=== PATIENT | male | born 1945 ===

== ENCOUNTER 2018-02-05 06:17 | Inpatient (IN) | payer MEDICARE ==
[2018-02-05] MEDS ORDERED: Sodium Chloride 0.9% 1,000 ML IV STA (07:17)
[2018-02-05] MEDS ORDERED: Iohexol 240 (50 ml) PO ONE (07:17)
--- NOTE | 2018-02-05 07:21 | ED PDOC ---
HPI: Male Pain Time Seen by Provider: 02/05/18 07:11 Chief Complaint (Nursing): Groin Pain Chief Complaint (Provider): Groin Pain History Per: Patient History/Exam Limitations: no limitations Onset/Duration Of Symptoms: Days (x1) Current Symptoms Are (Timing): Still Present Additional Complaint(s): 72 y/o male with a PMHx of DM presents to the ED with right inguinal pain and swelling, onset one day ago. Patient states pain is associated with nausea. Patient is able to pass gas. Denies vomiting, diarrhea and dysuria. PMD: [facility] Past Medical History Reviewed: Historical Data, Nursing Documentation, Vital Signs Vital Signs: Last Vital Signs Temp 97.2 F L 02/05/18 06:28 Pulse 82 02/05/18 06:28 Resp 18 02/05/18 06:28 BP 124/74 02/05/18 06:28 Pulse Ox 99 02/05/18 06:28 - Medical History PMH: Diabetes - Surgical History Surgical History: CABG - Family History Family History: States: Unknown Family Hx - Allergies Allergies/Adverse Reactions: Allergies Allergy/AdvReac Type Severity Reaction Status Date / Time No Known Allergies Allergy Verified 02/05/18 06:27 Review of Systems ROS Statement: Except As Marked, All Systems Reviewed And Found Negative Gastrointestinal: Positive for: Nausea. Negative for: Vomiting, Diarrhea Genitourinary Male: Positive for: Other (Right inguinal pain and swelling). Negative for: Dysuria Physical Exam - Reviewed Nursing Documentation Reviewed: Yes Vital Signs Reviewed: Yes - Physical Exam Skin: Positive for: Warm, Dry Eye Exam: Positive for: Normal appearance Neck: Positive for: Normal Respiratory: Positive for: Normal Breath Sounds. Negative for: Respiratory Distress Gastrointestinal/Abdominal: Positive for: Bowel Sounds, Tenderness (mild), Mass (right inguinal palpable pass. Not reducible). Negative for: Distended Male Genital Exam: Negative for: other (Testicular mass) Extremity: Positive for: Normal ROM. Negative for: Tenderness, Swelling Neurologic/Psych: Positive for: Alert, Oriented (x3). Negative for: Motor/ Sensory Deficits - Laboratory Results Result Diagrams: 02/05/18 07:30 02/05/18 07:30 - ECG O2 Sat by Pulse Oximetry: 99 (RA) Pulse Ox Interpretation: Normal Medical Decision Making Medical Decision Making: Time: 721 Plan: -- CT Abd/Pelvis PO & IV Contrast -- CMP -- ED Urine Dipstick -- CBC with differentials -- Sodium Chloride IV 100 mls/hr -- Iohexol 50 ml PO -- Toradol 30 mg IVP -- Zofran Inj 4 mg IVP Time: 1225 CT ABD/PELVIS RESULTS FINDINGS: LOWER THORAX: Evaluation of the lung bases reveals no evidence of infiltrate or effusion. Mild diffuse chronic interstitial changes are identified. No pericardial effusion is seen. Small hiatal hernia is noted. Visualized stomach is adequately distended, and there may be some mild nonspecific thickening in the gastric body and antrum. Mild gastritis is not excluded. Duodenum may also have some mild fold thickening, and mild duodenitis is not excluded. LIVER: Shows no evidence of focal mass or intrahepatic ductal dilatation. Tiny hepatic cyst is seen anteriorly in the subcapsular region of the left lobe of the liver on series 2, image 23. GALLBLADDER AND BILE DUCTS: Unremarkable. PANCREAS: Unremarkable. No gross lesion or ductal dilatation. SPLEEN: Unremarkable. ADRENALS: Unremarkable. No mass. KIDNEYS AND URETERS: Unremarkable. No hydronephrosis. No solid mass. VASCULATURE: Unremarkable. No aortic aneurysm. BOWEL: There is evidence of a very large right inguinal hernia with bowel loop within the hernia defect and extending towards the upper right hemiscrotum. Bowel loop appears to represent right colon and/or cecum. A portion of the small bowel, presumably the terminal ileum also appears to extend into the right hernia defect with some mild dilatation of the small bowel proximal to this area. Base of the appendix is also noted to lie within upper portion of the hernia. Chronic diverticular changes are seen in the left colon and sigmoid colon without pericolonic inflammatory change to suggest acute diverticulitis. No appreciable free intraperitoneal air is noted. APPENDIX: Appendix is normal in size but once again extends into the superior portion of the right inguinal hernia. PERITONEUM: Unremarkable. No free fluid. No free air. LYMPH NODES: Unremarkable. No enlarged lymph nodes. BLADDER: Bladder is distended without wall thickening. Prostate gland is enlarged. REPRODUCTIVE: Unremarkable. BONES: Degenerative changes are seen in the spine without fracture. OTHER FINDINGS: Fluid is also appreciated within the right inguinal hernia defect in superior hemiscrotal region. IMPRESSION: Large right inguinal hernia which contains cecum, probable terminal ileum, and also base of the appendix. There is some mild associated small bowel dilatation suggesting an element of partial bowel obstruction and contrast is noted extending to the level of the terminal ileum but not within the colon. No free intraperitoneal air or pneumatosis within the bowel. Scribe Attestation: Documented by Johnny Barr acting as a scribe for Sage Green MD. Provider Scribe Attestation: All medical record entries made by the Scribe were at my direction and personally dictated by me. I have reviewed the chart and agree that the record accurately reflects my personal performance of the history, physical exam, medical decision making, and the department course for this patient. I have also personally directed, reviewed, and agree with the discharge instructions and disposition. Disposition - Clinical Impression Clinical Impression: Inguinal hernia, incarcerated - Patient ED Disposition Is Patient to be Admitted: Yes - Disposition Disposition Time: 12:51 Condition: FAIR Forms: [facility] (Hebrew) - Pt Status Changed To: Hospital Disposition Of: Inpatient - Admit Certification Admit to Inpatient:: After my assessment, the patient will require hospitalization for at least two midnights. This is because of the severity of symptoms shown, intensity of services needed, and/or the medical risk in this patient being treated as an outpatient. - POA Present On Arrival: None
[2018-02-05] MEDS ORDERED: Iohexol 240 (50 ml) ONE (07:34)
[2018-02-05 10:14] LABS: BASO # 0.1 K/uL (0.0-0.2); BASO % 0.4 % (0.0-2.0); EOS # 0.1 K/uL (0.0-0.7); EOS % 0.8 % (0.0-4.0); HEMOGLOBIN 13.3 g/dL (12.0-18.0); LYMPH # 1.4 K/uL (1.0-4.3); LYMPH % 10.7 % (20.0-40.0); MEAN CELL VOLUME 83.2 fl (80.0-94.0); MEAN CORPUSCULAR HEMOGLOBIN 27.5 pg (27.0-31.0); MEAN PLATELET VOLUME 8.9 fl (7.2-11.7); MONO % 8.2 % (0.0-10.0); NEUT # 10.1 K/uL (1.8-7.0); NEUT % 79.9 % (50.0-75.0); RBC 4.84 Mil/uL (4.40-5.90); RED CELL DISTRIBUTION WIDTH 14.3 % (11.5-14.5); WHITE BLOOD COUNT 12.7 K/uL (4.8-10.8)
[2018-02-05 10:18] LABS: ALB/GLOB RATIO 1.3 (1.0-2.1); ALT/SGPT 25 U/L (21-72); AST/SGOT 21 U/L (17-59); BLOOD UREA NITROGEN 17 mg/dl (9-20); CALCIUM 9.5 mg/dL (8.4-10.2); GFR NON-AFRICAN AMERICAN > 60
[2018-02-05] MEDS ORDERED: Iohexol 300 100 ML IJ ONE (11:48)
[2018-02-05] MEDS ORDERED: Sodium Chloride 0.9% 50 ML IV ONE (11:48)
--- NOTE | 2018-02-05 12:28 | CT ---
Date of service: 02/05/2018 PROCEDURE: CT Abdomen and Pelvis with contrast HISTORY: abd pain COMPARISON: None. TECHNIQUE: Contrast dose: 95 milliliters Radiation dose: Total exam DLP = 410 mGy-cm. This CT exam was performed using one or more of the following dose reduction techniques: Automated exposure control, adjustment of the mA and/or kV according to patient size, and/or use of iterative reconstruction technique. FINDINGS: LOWER THORAX: Evaluation of the lung bases reveals no evidence of infiltrate or effusion. Mild diffuse chronic interstitial changes are identified. No pericardial effusion is seen. Small hiatal hernia is noted. Visualized stomach is adequately distended, and there may be some mild nonspecific thickening in the gastric body and antrum. Mild gastritis is not excluded. Duodenum may also have some mild fold thickening, and mild duodenitis is not excluded. LIVER: Shows no evidence of focal mass or intrahepatic ductal dilatation. Tiny hepatic cyst is seen anteriorly in the subcapsular region of the left lobe of the liver on series 2, image 23. GALLBLADDER AND BILE DUCTS: Unremarkable. PANCREAS: Unremarkable. No gross lesion or ductal dilatation. SPLEEN: Unremarkable. ADRENALS: Unremarkable. No mass. KIDNEYS AND URETERS: Unremarkable. No hydronephrosis. No solid mass. VASCULATURE: Unremarkable. No aortic aneurysm. BOWEL: There is evidence of a very large right inguinal hernia with bowel loop within the hernia defect and extending towards the upper right hemiscrotum. Bowel loop appears to represent right colon and/or cecum. A portion of the small bowel, presumably the terminal ileum also appears to extend into the right hernia defect with some mild dilatation of the small bowel proximal to this area. Base of the appendix is also noted to lie within upper portion of the hernia. Chronic diverticular changes are seen in the left colon and sigmoid colon without pericolonic inflammatory change to suggest acute diverticulitis. No appreciable free intraperitoneal air is noted. APPENDIX: Appendix is normal in size but once again extends into the superior portion of the right inguinal hernia. PERITONEUM: Unremarkable. No free fluid. No free air. LYMPH NODES: Unremarkable. No enlarged lymph nodes. BLADDER: Bladder is distended without wall thickening. Prostate gland is enlarged. REPRODUCTIVE: Unremarkable. BONES: Degenerative changes are seen in the spine without fracture. OTHER FINDINGS: Fluid is also appreciated within the right inguinal hernia defect in superior hemiscrotal region. IMPRESSION: Large right inguinal hernia which contains cecum, probable terminal ileum, and also base of the appendix. There is some mild associated small bowel dilatation suggesting an element of partial bowel obstruction and contrast is noted extending to the level of the terminal ileum but not within the colon. No free intraperitoneal air or pneumatosis within the bowel.
[2018-02-05 13:11] VITALS: BP 132/67; PULSE 66; RESP 20; TEMP 97.9; O2SAT 98
--- NOTE | 2018-02-05 13:20 | CP.PCM.CON ---
<Jessica Jones - Last Filed: 02/05/18 13:13> History of Present Illness - History of Present Illness History of Present Illness: Surgery: Dr. Lees Pt is a 72M with PMHx significant for DM & open heart surgery who presented to [facility] for complaints of abdominal pain that started yesterday. Pt reports feeling a bulge in his Right groin with sharp pain. Pt admits to having similar episode in the past but states it resolved on it's own. Pt denies any associated nausea/vomiting, fevers or chills. He states his last BM was yesterday and it was normal. He denies any blood in his stool. In the ER , pt had a CT abdomen/pelvis with PO/IV contrast which showed R inguinal hernia containing colon. Surgery called to evaluate. Upon exam, pt resting comfortably in bed. He denies any abdominal pain and states pain is only present in the R groin with palpation. Denies any other complaints. Denies chest pain or SOB. PMHx: as stated above PSHx: open heart surgery 2008 SocialHx: denies smoking/EtOH/drugs NKDA Review of Systems - Review of Systems All systems: reviewed and no additional remarkable complaints except (as per HPI ) Past Patient History - Past Medical History & Family History Past Medical History?: Yes - Past Social History Smoking Status: Never Smoked - PULMONARY Hx Respiratory Disorders: No - NEUROLOGICAL Hx Neurological Disorder: No - HEENT Hx HEENT Problems: No - RENAL Hx Chronic Kidney Disease: No Hx Kidney Stones: No - ENDOCRINE/METABOLIC Hx Endocrine Disorders: Yes Hx Diabetes Mellitus Type 2: Yes - HEMATOLOGICAL/ONCOLOGICAL Hx Blood Disorders: No - INTEGUMENTARY Hx Dermatological Problems: No - MUSCULOSKELETAL/RHEUMATOLOGICAL Hx Musculoskeletal Disorders: No - GASTROINTESTINAL Hx Gastrointestinal Disorders: No - GENITOURINARY/GYNECOLOGICAL Hx Genitourinary Disorders: No - PSYCHIATRIC Hx Physical Abuse: No - SURGICAL HISTORY Hx Coronary Artery Bypass Graft: Yes - ANESTHESIA Hx Anesthesia: Yes Meds Home Medications: Home Medication List Medication Instructions Recorded Confirmed Type traMADol [Ultram] 50 mg PO Q8 #10 tab 02/05/18 Rx Allergies/Adverse Reactions: Allergies Allergy/AdvReac Type Severity Reaction Status Date / Time No Known Allergies Allergy Verified 02/05/18 06:27 - Medications Medications: Current Medications Sodium Chloride (Sodium Chloride 0.9%) 1,000 mls @ 100 mls/hr IV .Q10H STA Stop: 02/05/18 17:16 Last Admin: 02/05/18 07:43 Dose: 100 mls/hr Physical Exam - Constitutional Appears: Well, No Acute Distress - Head Exam Head Exam: ATRAUMATIC, NORMOCEPHALIC - Eye Exam Eye Exam: Normal appearance - ENT Exam ENT Exam: Mucous Membranes Moist - Respiratory Exam Respiratory Exam: NORMAL BREATHING PATTERN - Cardiovascular Exam Cardiovascular Exam: RRR - GI/Abdominal Exam GI & Abdominal Exam: Soft. absent: Distended, Guarding, Rebound, Tenderness - Exam Additional comments: large R inguinal hernia; soft, mild tenderness to palpation - Neurological Exam Neurological exam: Alert, Oriented x3 - Skin Skin Exam: Dry, Warm Results - Vital Signs Recent Vital Signs: Last Vital Signs Temp 97.9 F 02/05/18 13:10 Pulse 66 02/05/18 13:10 Resp 20 02/05/18 13:10 BP 132/67 02/05/18 13:10 Pulse Ox 98 02/05/18 13:10 - Labs Result Diagrams: 02/05/18 07:30 02/05/18 07:30 Labs: Laboratory Results - last 24 hr 02/05/18 02/05/18 02/05/18 07:30 07:30 10:28 WBC 12.7 H RBC 4.84 Hgb 13.3 Hct 40.2 MCV 83.2 MCH 27.5 MCHC 33.0 RDW 14.3 Plt Count 169 MPV 8.9 Neut % (Auto) 79.9 H Lymph % (Auto) 10.7 L [place] % (Auto) 8.2 Eos % (Auto) 0.8 Baso % (Auto) 0.4 Neut # (Auto) 10.1 H Lymph # (Auto) 1.4 [place] # (Auto) 1.0 H Eos # (Auto) 0.1 Baso # (Auto) 0.1 Sodium 136 Potassium 3.9 Chloride 100 Carbon Dioxide 26 Anion Gap 14 BUN 17 Creatinine 0.4 L Est GFR ( Amer) > 60 Est GFR (Non-Af Amer) > 60 POC Glucose (mg/dL) 196 H Random Glucose 188 H Calcium 9.5 Total Bilirubin 0.6 AST 21 ALT 25 Alkaline Phosphatase 72 Total Protein 7.2 Albumin 4.0 Globulin 3.2 Albumin/Globulin Ratio 1.3 - Imaging and Cardiology CT scan - abdomen Status: Image reviewed by me, Report reviewed by me Assessment & Plan - Assessment and Plan (Free Text) Assessment: 72M with R inguinal hernia Plan: - pt seen and examined with Dr. Lees, hernia was reduced with gentle traction after pt was placed in trendelenberg - pt tolerated the procedure well, without any pain/complaints - ok to DC with outpt f/u for elective hernia repair - pt instructed to return to the ER if symptoms return - d/w Dr. Yoana Jones <Ruy Lees - Last Filed: 02/05/18 14:14> History of Present Illness - History of Present Illness History of Present Illness: Patient was seen and examined at the bedside. Agree with resident's note above. Meds - Medications Medications: Current Medications Sodium Chloride (Sodium Chloride 0.9%) 1,000 mls @ 100 mls/hr IV .Q10H STA Stop: 02/05/18 17:16 Last Admin: 02/05/18 07:43 Dose: 100 mls/hr Results - Vital Signs Recent Vital Signs: Last Vital Signs Temp 97.9 F 02/05/18 13:10 Pulse 66 02/05/18 13:10 Resp 20 02/05/18 13:10 BP 132/67 02/05/18 13:10 Pulse Ox 98 02/05/18 13:10 - Labs Result Diagrams: 02/05/18 07:30 02/05/18 07:30 Labs: Laboratory Results - last 24 hr 02/05/18 02/05/18 02/05/18 07:30 07:30 10:28 WBC 12.7 H RBC 4.84 Hgb 13.3 Hct 40.2 MCV 83.2 MCH 27.5 MCHC 33.0 RDW 14.3 Plt Count 169 MPV 8.9 Neut % (Auto) 79.9 H Lymph % (Auto) 10.7 L [place] % (Auto) 8.2 Eos % (Auto) 0.8 Baso % (Auto) 0.4 Neut # (Auto) 10.1 H Lymph # (Auto) 1.4 [place] # (Auto) 1.0 H Eos # (Auto) 0.1 Baso # (Auto) 0.1 Sodium 136 Potassium 3.9 Chloride 100 Carbon Dioxide 26 Anion Gap 14 BUN 17 Creatinine 0.4 L Est GFR ( Amer) > 60 Est GFR (Non-Af Amer) > 60 POC Glucose (mg/dL) 196 H Random Glucose 188 H Calcium 9.5 Total Bilirubin 0.6 AST 21 ALT 25 Alkaline Phosphatase 72 Total Protein 7.2 Albumin 4.0 Globulin 3.2 Albumin/Globulin Ratio 1.3
== END 2018-02-05 13:30 | disposition home or self-care (01) | DRG 395 ==
LOC: H.ER 06:17 → H.ERHOLD 12:49
PROVIDERS: ADMIT Internal Medicine; ATTEND Internal Medicine
DX: K40.30 Unilateral inguinal hernia, with obstruction, without gangrene, not specified as recurrent (principal); Z95.1 Presence of aortocoronary bypass graft; E11.9 Type 2 diabetes mellitus without complications

== ENCOUNTER 2018-02-09 06:20 | Day surgery (SDC) | payer MEDICARE ==
[2018-02-08 15:08] VITALS: BMI 21.7
[2018-02-09] MEDS ORDERED: Lactated Ringer's 1,000 ML IV ONE (07:10)
[2018-02-09] MEDS ORDERED: Bupivacaine HCl 0.5% PF (30 ml) Inj ONE (07:42)
[2018-02-09] MEDS ORDERED: ceFAZolin IV 1 gm in Dextrose 1 GM/50 ML BAG IVPB ONE (07:46)
--- NOTE | 2018-02-09 08:04 | CP.SDSHP ---
Same Day Surgery H & P - History Proposed Procedure: Right inguinal hernia repair with mesh Pre-Op Diagnosis: right inguinal hernia - Previous Medical/Surgical History Cardiac: ASHD/CAD Previous Surgical History: CABG - Allergies Allergies: Allergies No Known Allergies Allergy (Verified 02/09/18 07:26) - Physical Exam Vital Signs: Vital Signs 02/09/18 07:00 Temperature 98.2 F Pulse Rate 84 Respiratory 18 Rate Blood Pressure 113/73 O2 Sat by Pulse 99 Oximetry Mental Status: Alert & Oriented x3 Neuro: WNL Heart: WNL Lungs: WNL GI: WNL - {Optional Preform as Required} Breast: WNL Abdomen: Other (reducible right inguinal hernia) Integument: WNL : WNL Ortho: WNL ENT: WNL - Impression Impression: right inguinal hernia Pt. Evaluated Today:Candidate for Anesthesia & Procedure: Yes - Date & Time Date: 02/09/18 Time: 08:00 Short Stay Discharge - Short Stay Discharge Admitting Diagnosis/Reason for Visit: K40.90 Disposition: HOME/ ROUTINE Referrals: Jones Whitt MD [Primary Care Provider] - Follow-up: in the office in 2 weeks Additional Instructions (Diet, Activity): no heavy lifting for 4 weeks, keep incision clean and dry Progress Note/Discharge Note with Instructions: Patient underwent elective right inguinal hernia repair
--- NOTE | 2018-02-09 08:08 | RAD ---
Date of service: 02/09/2018 HISTORY: pre op COMPARISON: No prior. TECHNIQUE: Chest PA and lateral FINDINGS: LUNGS: There is vague opacity overlying the anterior right 1st rib, right paratracheal location/confluence of the medial right clavicle. This may represent asymmetrical right pleural parenchymal thickening or reaction. However, chronicity is unknown. PLEURA: No significant pleural effusion identified. No pneumothorax apparent. CARDIOVASCULAR: Midline sternotomy. And coronary artery bypass surgery clips. Normal heart size. No pulmonary venous congestion appreciated OSSEOUS STRUCTURES: No significant abnormalities. VISUALIZED UPPER ABDOMEN: Normal. OTHER FINDINGS: None. IMPRESSION: Right upper lobe vague opacity of unclear significance (if any) asymmetrical right pleural parenchymal reaction thickening is 1 consideration. Recommend comparison with outside chest x-rays to assess stability. If none exist and noncontrast CT chest should suffice for clarification. No dense consolidation noted
[2018-02-09] MEDS ORDERED: Bupivacaine 0.5% Inj(30mL) IJ ONE ×2 (08:35→09:46)
--- NOTE | 2018-02-09 10:12 | PCM.SURG1 ---
Surgeon's Initial Post Op Note - Surgeon's Notes Surgeon: sidra E Merchant: none Type of Anesthesia: General Endo Anesthesia Administered By: Osmel Pre-Operative Diagnosis: right inguinal hernia Operative Findings: pantaloon hernia Post-Operative Diagnosis: pantaloon hernia Operation Performed: repair of right inguinal hernia with mesh Specimen/Specimens Removed: hernia sac and lipoma of the cord Estimated Blood Loss: EBL {In ML}: 10 Blood Products Given: N/A Drains Used: No Drains Post-Op Condition: Good Date of Surgery/Procedure: 02/09/18 Time of Surgery/Procedure: 08:00
[2018-02-09] MEDS ORDERED: Lactated Ringer's 1,000 ML IV SCH (10:15)
--- NOTE | 2018-02-09 10:16 | CARD ---
APPROVED REPORT Date of service: 02/09/2018 EKG Measurement Heart [id number] <Conclusion> Normal sinus rhythm Right bundle branch block Abnormal ECG
[2018-02-09] MEDS ORDERED: Oxycodone/Acetaminophen 5/325 mg Tab PO PRN ×2 (10:19→10:21)
[2018-02-09 12:31] VITALS: RESP 18
[2018-02-09 12:55] VITALS: O2SAT 98
[2018-02-09 15:15] VITALS: BP 110/67; PULSE 84; TEMP 98.4
--- NOTE | 2018-02-10 08:28 | OP ---
PROCEDURE DATE: 02/09/18 PREOPERATIVE DIAGNOSIS: Right inguinal hernia. POSTOPERATIVE DIAGNOSIS: Direct and indirect (pantaloon) right inguinal hernia. PROCEDURE: Repair of the right inguinal hernia with mesh. SURGEON: Ruy Lees MD PAN RECLAIM PROCESSOR: None. TYPE OF ANESTHESIA: General with endotracheal intubation. ANESTHESIA ADMINISTERED BY: Dr. Bolivar. INTRAOPERATIVE FINDINGS: Pantaloon hernia. IV FLUIDS: Crystalloids. ESTIMATED BLOOD LOSS: 10 mL. SPECIMEN: Hernia sac and lipoma of the cord. BRIEF HISTORY: Mr. Norman is a very pleasant 72-year-old male, who initially presented to [facility] Emergency Room for a right inguinal hernia that was incarcerated; however, the hernia was reduced in the emergency room and the patient was brought back for elective right inguinal hernia repair. All the risks and benefits of the procedure were explained to the patient. With the patient having a full understanding of all the risks and benefits involved, informed consent was obtained and the patient was taken to the operating room for the above stated procedure. DESCRIPTION OF PROCEDURE: The patient was brought in to the operating room and placed supine on the operating table. Bilateral Flowtron boots were applied to the patient's lower extremities. After successful induction of anesthesia and successful endotracheal intubation by the anesthesia team, the patient's right groin was shaved and prepped with Betadine and draped in a standard surgical fashion. Prior to the beginning of the procedure, the patient received prophylactic Ancef antibiotic. Time-out was called in the room and everyone in the room were in agreement. Using a 15-blade scalpel knife, approximately 5-cm incision was made in an oblique fashion in the right groin and subsequent to that, dissection was carried down with electrocautery for the subcutaneous tissues until the Sergo's fascia was encountered. The Sergo's fascia was transected with electrical cautery and dissection was carried down until the fibers of the external oblique muscle were encountered. At this point in time, using a 15-blade scalpel knife, a small xuan was made along the fibers of the external oblique muscle. Subsequent to that using Metzenbaum scissors, the roof of the inguinal canal was opened up with Metzenbaum scissors. At this point in time, the spermatic cord and hernia sac were mobilized with blunt dissection and a [place] drain was placed along the cord. Once this was accomplished, my attention was turned to the hernia sac. Hernia sac was dissected off the cord structures taking care of the preserved pampiniform plexus as well as vein and vas deferens. Once the hernia sac was dissected down all the way to the internal inguinal ring, it was opened up and there appeared to be no content in the hernia sac. There was lipoma of the cord that was dissected off the hernia sac and cord and passed off to the Bates stand as a specimen. At this point in time, the hernia sac was twisted and two ligating 2-0 Vicryl sutures were placed right at the base of the ligated hernia sac and redundant hernia sac was transected with electrical cautery and passed off to the Bates stand as a specimen. At this point in time, I made a decision to use a large plug. The plug was introduced into the internal inguinal ring and secured in place superiorly, laterally, and medially with interrupted 3-0 Vicryl sutures. Once this was accomplished, attention was turned to the floor of the inguinal canal that appeared to have direct hernia. So at this point in time, the mesh was tailored to cover the floor of the inguinal canal and the mesh was secured at the apex to the pubic tubercle with 2-0 Vicryl suture on UR-6 needle and subsequent to that, mesh was secured inferiorly to the shelving edge of the inguinal ligament with interrupted 3-0 Vicryl sutures and superiorly to the conjoint tendon with interrupted 3-0 Vicryl sutures. Once this was accomplished, the ears of the mesh were placed around the cord and secured behind the cord with 3-0 Vicryl suture. Once this was accomplished, the [place] drain was removed. The wound was irrigated and dried. Hemostasis was confirmed. External oblique muscle was closed with a running 3-0 Vicryl suture and once this was accomplished, the Sergo's fascia was approximated with several interrupted 3-0 Vicryl sutures. Several deep dermal sutures were placed of 3-0 Vicryl and subsequent to that, the wound was injected with 10 mL of Marcaine local anesthetic and subsequent to that the skin was closed with 4-0 Monocryl suture in a running subcuticular fashion. At the end of the procedure, the patient's abdomen was washed and dried and Dermabond was applied to the site of the incision. Both testicles appeared to be in the scrotum at the end of the case. The patient was successfully extubated by the anesthesia team, transferred to the stretcher, and taken to the recovery room in a stable condition. At the end of the procedure, all the instrument counts, needles, and sponges were correct. Ruy Lees MD
== END 2018-02-09 15:20 | disposition home or self-care (01) ==
LOC: H.OPSURG 06:20
PROVIDERS: ATTEND Surgery
DX: K40.90 Unilateral inguinal hernia, without obstruction or gangrene, not specified as recurrent (principal); I25.10 Atherosclerotic heart disease of native coronary artery without angina pectoris; E11.9 Type 2 diabetes mellitus without complications; I45.10 Unspecified right bundle-branch block
CPT/HCPCS: 49505; 71046; 82948; 88302; 93005; C1781; J0690; J1885; J2270; J2405; J7030; J7120